=== PATIENT | female | born 1990 | race African-American/Black ===

== ENCOUNTER 2019-01-04 12:26 | Emergency (ER) | payer MEDICAID, OTHER ==
[~2019-01-04] VITALS: Ht 160 cm; Wt 75.0 kg
[2019-01-04 12:35] VITALS: BP 160/70
== END 2019-01-04 14:06 | disposition left against medical advice (07) ==
LOC: ER 12:26
DX: R07.89 Other chest pain (principal); F41.9 Anxiety disorder, unspecified; R06.00 Dyspnea, unspecified; I10 Essential (primary) hypertension
CPT/HCPCS: 81025; 99283